=== PATIENT | female | born 1990 | race Caucasian/White ===

== ENCOUNTER 2017-01-08 19:21 | Emergency (ER) | payer SELFPAY ==
[~2017-01-08] VITALS: Ht 162.5 cm; Wt 95.3 kg
[~2017-01-08 19:21] MED LIST: AMOXIL500 MG PO; AUGMENTIN 875 M1 TAB PO; AUGMENTIN 875875 MG PO; AVPAK AZITHROM250 M1 PO; BACTRIM DS 8001 TA1 PO; CELEXA20 MG PO; CIPRO250 MG PO; CIPRO500 MG PO; CLARITIN10 MG PO; CYCLOBENZAPRINE5 M3 PO; FLUCONAZOLE100 MG PO; Fioricet 325 MG1 TAB PO; HYDROCODONE BIT1 T11 PO; IUD; MACROBID100 M1 PO; MEDROL DOSEPAK4 MG PO; MIRENA52 MG IU; MUCINEX DM 60 M1 TER PO; Motrin,Rufen800 MG PO; OMEPRAZOLE20 MG PO; PHENERGAN25 M3 PO; POLLY-VITES1 CTB PO; PREDNICOT20 MG PO; PREDNISONE20 MG PO; PROTONIX40 MG PO; PROVENTIL0.09 MG/A1 INH; PYRIDIUM200 M1 PO; ROBITUSSIN AC 110 ML PO; SALINE NOSE SPR45 ML NS; TESSALON PERLE200 MG PO; TRAMADOL HCL50 MG PO; TRIMOX500 MG PO; TYLENOL COLD &240 M1 PO; VENTOLIN H0.09 MG/AC INH; VIBRAMYCIN100 MG PO; VISTARIL25 M1 PO; VISTARIL25 M2 PO; VISTARIL25 MG PO; XANAX0.25 MG PO; ZITHROMAX Z PA250 MG PO; ZITHROMAX250 MG PO; ZOFRAN ODT4 MG SL; ZOFRAN4 MG PO; ZYRTEC10 M2 PO
[2017-01-08] MEDS ORDERED: CEPHALEXIN500 M1 PO (20:04)
[2017-01-08] MEDS ORDERED: PREDNISONE20 M1 PO (20:05)
== END 2017-01-08 20:17 | disposition home or self-care (01) ==
LOC: ED 19:21
DX: L55.1 Sunburn of second degree (principal); F17.200 Nicotine dependence, unspecified, uncomplicated

== ENCOUNTER 2017-02-19 00:06 | Emergency (ER) | payer SELFPAY ==
[~2017-02-19] VITALS: Ht 162.5 cm; Wt 95.3 kg
[~2017-02-19 00:06] MED LIST changes: +CEPHALEXIN500 M1 PO; +PREDNISONE20 M1 PO
[2017-02-19 00:42] LABS: BILIRUBIN NEGATIVE (NEGATIVE); BLOOD TRACE-INTACT (NEGATIVE); COLOR ORANGE (YELLOW); GLUCOSE TRACE (NEGATIVE); KETONE TRACE (NEGATIVE); LEUKO ESTERASE TRACE (NEGATIVE); NITRITE POSITIVE (NEGATIVE); PH 5.5 (5.0-9.0); PROTEIN 1+ (NEGATIVE); SPECIFIC GRAVITY <= 1.005 (1.005-1.030)
[2017-02-19 00:44] LABS: CLARITY CLOUDY (CLEAR); EPITHELIAL CELLS 45-50
[2017-02-19 00:45] LABS: WBC 21-30 wbc/hpf (0-5)
[2017-02-19 00:46] LABS: BACTERIA TRACE; URINE REFLEX COMMENT YES (NO)
[2017-02-19] MEDS ORDERED: CIPRO500 MG PO (00:52)
== END 2017-02-19 01:09 | disposition home or self-care (01) ==
LOC: ED 00:06
PROVIDERS: Physician Assistant
DX: N30.01 Acute cystitis with hematuria (principal); F17.200 Nicotine dependence, unspecified, uncomplicated; Z87.440 Personal history of urinary (tract) infections

== ENCOUNTER 2017-02-23 03:19 | Emergency (ER) | payer SELFPAY ==
[~2017-02-23] VITALS: Ht 162.5 cm; Wt 95.3 kg
[2017-02-23 03:58] LABS: BASO # 0.1 10*3/uL (0.0-0.1); BASO % 0.7 % (0.0-1.0); EOS # 0.2 10*3/uL (0.0-0.4); EOS % 2.4 % (1.0-4.0); HEMATOCRIT 43.6 % (37.0-47.0); HEMOGLOBIN 14.8 g/dl (12.0-16.0); LYMPH # 2.7 10*3/uL (1.3-4.4); LYMPH % 30.6 % (27.0-41.0); MEAN CELL VOLUME 91.8 fl (81.0-99.0); MEAN CORPUSCULAR HGB 31.2 pg (27.0-31.0); MEAN CORPUSCULAR HGB CONC 33.9 g/dl (33.0-37.0); MEAN PLATELET VOLUME 11.6 fl (9.6-12.3); MONO # 0.5 10*3/uL (0.1-1.0); MONO % 5.2 % (3.0-9.0); NEUT # 5.3 10*3/uL (2.3-7.9); NEUT % 60.9 % (47.0-73.0); PLATELET COUNT AUTOMATED 229 10*3/uL (130-400); RED BLOOD COUNT 4.75 10*6/uL (4.10-5.10); RED CELL DISTRI WIDTH 12.9 % (0-14.5); WHITE BLOOD COUNT 8.7 10*3/uL (4.8-10.8)
[2017-02-23 04:13] LABS: BUN 7 mg/dl (7-24); C-REACTIVE PROTEIN 0.75 MG/DL (0-0.3); CARBON DIOXIDE 24 mmol/L (21-32); CHLORIDE 109 mmol/L (98-107); EST GLOM FILT AFRICAN AMERICAN > 60 ml/min; GLUCOSE 94 mg/dL (65-99); POTASSIUM 3.9 mmol/L (3.5-5.1); SODIUM 144 mmol/L (136-145)
[2017-02-23 04:24] LABS: BILIRUBIN NEGATIVE (NEGATIVE); BLOOD TRACE-INTACT (NEGATIVE); CLARITY CLEAR (CLEAR); COLOR YELLOW (YELLOW); GLUCOSE NEGATIVE (NEGATIVE); KETONE NEGATIVE (NEGATIVE); LEUKO ESTERASE NEGATIVE (NEGATIVE); NITRITE NEGATIVE (NEGATIVE); PROTEIN NEGATIVE (NEGATIVE); SPECIFIC GRAVITY 1.015 (1.005-1.030); UROBILINOGEN 0.2 E.U./dl (0.2-1.0)
[2017-02-23 04:49] LABS: BACTERIA 1+; EPITHELIAL CELLS 45-50; URINE REFLEX COMMENT NO (NO); WBC 0-2 wbc/hpf (0-5)
== END 2017-02-23 06:21 | disposition home or self-care (01) ==
LOC: ED 03:19
PROVIDERS: Emergency Medicine Emergency Medical Services
DX: N23 Unspecified renal colic (principal); F17.200 Nicotine dependence, unspecified, uncomplicated

== ENCOUNTER 2018-06-28 20:10 | Emergency (ER) | payer OTHER ==
[~2018-06-28] VITALS: Wt 99.8 kg
[2018-06-28] MEDS ORDERED: TESSALON PERLE100 M1 PO (21:55)
[2018-06-28] MEDS ORDERED: PREDNISONE10 MG PO (21:55)
[2018-06-28] MEDS ORDERED: PROAIR HFA8.5 GM INH (21:55)
[2018-06-28] MEDS ORDERED: HYCODAN/HYDROMET5 ML PO (21:55)
== END 2018-06-28 22:10 | disposition home or self-care (01) ==
LOC: ED 20:10
DX: J06.9 Acute upper respiratory infection, unspecified (principal); F17.200 Nicotine dependence, unspecified, uncomplicated

== ENCOUNTER → 2019-07-30 | Outpatient (CLI) | payer OTHER ==
[~2019-07-30] MED LIST changes: +HYCODAN/HYDROMET5 ML PO; +PREDNISONE10 MG PO; +PROAIR HFA8.5 GM INH; +TESSALON PERLE100 M1 PO
== END | disposition home or self-care (01) ==
LOC: RAD 16:28
DX: M54.9 Dorsalgia, unspecified (principal)

== ENCOUNTER 2019-12-09 02:35 | Emergency (ER) | payer OTHER ==
[~2019-12-09] VITALS: Ht 162.5 cm; Wt 95.3 kg
== END 2019-12-09 03:33 | disposition home or self-care (01) ==
LOC: ED 02:35
DX: L70.0 Acne vulgaris (principal); G43.909 Migraine, unspecified, not intractable, without status migrainosus; F17.200 Nicotine dependence, unspecified, uncomplicated; Z79.899 Other long term (current) drug therapy; Z87.442 Personal history of urinary calculi

== ENCOUNTER 2020-12-02 19:31 | Emergency (ER) | payer OTHER ==
[~2020-12-02] VITALS: Ht 162.5 cm; Wt 96.2 kg
[2020-12-02] MEDS ORDERED: IBUPROFEN600 MG PO (21:13)
[2020-12-02] MEDS ORDERED: SEPTDS PO (21:13)
== END 2020-12-02 21:45 | disposition home or self-care (01) ==
LOC: ED 19:31
DX: H92.02 Otalgia, left ear (principal); Z79.899 Other long term (current) drug therapy

== ENCOUNTER → 2021-05-11 | Outpatient (CLI) | payer OTHER ==
[~2021-05-11] MED LIST changes: +IBUPROFEN600 MG PO; +SEPTDS PO
== END | disposition home or self-care (01) ==
LOC: RAD 10:46
PROVIDERS: ATTEND Family Medicine
DX: M25.552 Pain in left hip (principal); M54.10 Radiculopathy, site unspecified

== ENCOUNTER 2021-05-23 18:39 | Emergency (ER) | payer OTHER | END 2021-05-23 20:04 | disposition left against medical advice (07) | LOC: ED 18:39 | DX: R09.81 Nasal congestion (principal); Z53.21 Procedure and treatment not carried out due to patient leaving prior to being seen by health care provider ==

== ENCOUNTER 2023-09-20 13:26 | Emergency (ER) | payer SELFPAY ==
[~2023-09-20] VITALS: Ht 162.5 cm; Wt 99.8 kg
[2023-09-20] MEDS ORDERED: AMOX-CLAV 875-1 EACH PO (13:37)
== END 2023-09-20 13:59 | disposition home or self-care (01) ==
LOC: ED 13:26
DX: H66.91 Otitis media, unspecified, right ear (principal); F41.9 Anxiety disorder, unspecified; G43.909 Migraine, unspecified, not intractable, without status migrainosus

== ENCOUNTER 2025-05-25 09:36 | Emergency (ER) | payer SELFPAY ==
[~2025-05-25] VITALS: Ht 162.5 cm; Wt 90.7 kg
[~2025-05-25 09:36] MED LIST changes: +AMOX-CLAV 875-1 EACH PO
[2025-05-25] MEDS ORDERED: ZEPBOUND2.5 MG/0.5 SQ (09:46)
[2025-05-25] MEDS ORDERED: VITAMIN D325 MC1 PO (09:47)
[2025-05-25] MEDS ORDERED: COLACE 2-IN-11 EACH PO (09:47)
[2025-05-25] MEDS ORDERED: ZYRTEC-D TABLE1 EACH PO (09:47)
[2025-05-25] MEDS ORDERED: PROBIOTIC1 EAC7 PO (09:48)
[2025-05-25] MEDS ORDERED: NAPROSYN500 MG PO (10:30)
[2025-05-25] MEDS ORDERED: PREDNISONE20 M1 PO (10:30)
[2025-05-25] MEDS ORDERED: Dexamethasone Sodium Phospha 20 MG/5 ML VIAL IM ONE (10:30)
== END 2025-05-25 10:41 | disposition home or self-care (01) ==
LOC: ED 09:36
DX: M94.0 Chondrocostal junction syndrome [Tietze] (principal); Z79.899 Other long term (current) drug therapy